=== PATIENT | male | born 1960 | race Caucasian/White ===

== ENCOUNTER 2020-07-18 09:48 | Day surgery (SDC) | payer OTHER ==
[~2020-07-18 09:48] MED LIST: CIPROFLOXACIN 0.3% OPHTH SOLUTION 5ML BOTTLE. OD ONE; CRESTOR40 MG PO; GENTAMICIN SULFATE/PF 4 MG, EPINEPHrine 0.5 MG in BALANCED SALT IRR SOLN (BAG) 500 ML IO ONE; IV RINGERS,LACTATED 1000ML 1,000 ML IV SCH; LIDOCAINE 2% JELLY 6ML IN APPLICATOR. OD ONE; PHENYLEPHRINE 2.5% OPHTH SOLUTION 2ML BOTTLE. OD SCH; PRAS10TA9 PO; PROPARACAINE 0.5% OPHTH SOLUTION 15ML BOTTLE. OD ONE; RIVA20TA2 PO; TADA5TAB PO
[2020-07-18] MEDS ORDERED: CHONDROIT-SOD-HYALURONATE KIT. ONE (10:20)
[2020-07-18] MEDS ORDERED: CHONDROITIN-SOD-HYALURONATE 0.5 ML DISP.SYRIN. ONE (10:20)
[2020-07-18] MEDS ORDERED: NEO/POLYMYX/DEXAMETH OPHTH OINTMENT 3.5GM TUBE. ONE (10:20)
[2020-07-18] MEDS ORDERED: BALANCED SALT IRRIG OPHTH SOLN 15 ML BOTTLE. ONE (10:20)
[2020-07-18] MEDS ORDERED: LIDOCAINE 1%/PHENYLEPH 1.5% PF OPHTH 1 ML VIAL. ONE (10:20)
[2020-07-18] MEDS ORDERED: LIDOCAINE 2% JELLY 6ML IN APPLICATOR. ONE (10:20)
[2020-07-18] MEDS: CYCLOPENTOLATE 2% OPHTH SOLUTION 2ML BOTTLE. OD SCH ×3 (10:50→11:00)
[2020-07-18] MEDS: PHENYLEPHRINE 10% OPHTH SOLUTION 5ML BOTTLE. OD SCH ×2 (10:50→11:00)
[2020-07-18] MEDS ORDERED: MIDAZOLAM HCL/PF 2 MG/2 ML VIAL. ONE (11:35)
[2020-07-18 13:26] VITALS: BP 122/73
--- NOTE | 2020-07-19 10:54 | OP ---
DATE OF SURGERY: 07/18/2020 PREOPERATIVE DIAGNOSIS: Cataract of the right eye. PROCEDURE: Phacoemulsification with posterior chamber intraocular lens implantation of the right eye. INDICATION: Painless progressive visual loss and visually significant cataract. SURGEON: Matilda Abraham MD ANESTHESIA: Topical with monitored anesthesia care. DESCRIPTION OF PROCEDURE: The right eye was prepped with Betadine in the usual sterile fashion and draped. A paracentesis was performed followed by instillation of preservative-free lidocaine and phenylephrine mixed with balanced salt solution. Viscoelastic was injected followed by a capsulorrhexis and hydrodissection. The nucleus was removed in a modified stop and chop fashion and the I/A handpiece was used to remove the remainder of the cortex. Viscoelastic was injected into the capsular bag. An [place] model SN60WF with a power of 20.0 diopters was placed into the capsular bag. Balanced salt solution was used to hydrate the corneal wounds and the viscoelastic evacuated with the I/A handpiece. Once no leak was noted, Maxitrol was placed on the eye and the eye shielded and the patient was sent to the recovery room uneventfully. MATILDA ABRAHAM MD DR: ISAIAS/amairani JOB#: [id number] / [id number]
== END 2020-07-18 13:42 | disposition home or self-care (01) ==
LOC: SURG 09:48
PROVIDERS: ATTEND Ophthalmology
DX: H25.89 Other age-related cataract (principal); I10 Essential (primary) hypertension; E78.00 Pure hypercholesterolemia, unspecified; J44.9 Chronic obstructive pulmonary disease, unspecified; I25.10 Atherosclerotic heart disease of native coronary artery without angina pectoris; Z20.828 Contact with and (suspected) exposure to other viral communicable diseases; Z87.891 Personal history of nicotine dependence; Z72.89 Other problems related to lifestyle; Z98.890 Other specified postprocedural states; Z88.0 Allergy status to penicillin
CPT/HCPCS: 66984; 87426; C1780; C9803; J0171; J1580; J2250; J3490; U0003

== ENCOUNTER 2020-07-25 09:55 | Day surgery (SDC) | payer OTHER ==
[~2020-07-25 09:55] MED LIST changes: -CIPROFLOXACIN 0.3% OPHTH SOLUTION 5ML BOTTLE. OD ONE; +CIPROFLOXACIN 0.3% OPHTH SOLUTION 5ML BOTTLE. OS ONE; +HYDROmorphone 2 MG/ML VIAL IVP PRN; +LIDOCAINE 1% PF 2 ML VIAL. ID PRN; -LIDOCAINE 2% JELLY 6ML IN APPLICATOR. OD ONE; +LIDOCAINE 2% JELLY 6ML IN APPLICATOR. OS ONE; +MORPHINE SULFATE 2 MG/ML VIAL. IVP PRN; +ONDANSETRON PF 4 MG/2 ML VIAL. IVP PRN; -PHENYLEPHRINE 2.5% OPHTH SOLUTION 2ML BOTTLE. OD SCH; +PROCHLORPERAZINE 10 MG/2 ML VIAL. IVP PRN; -PROPARACAINE 0.5% OPHTH SOLUTION 15ML BOTTLE. OD ONE; +PROPARACAINE 0.5% OPHTH SOLUTION 15ML BOTTLE. OS ONE; +fentaNYL PF VIAL 100 MCG/2 ML VIAL IVP PRN
[2020-07-25] MEDS: PHENYLEPHRINE 10% OPHTH SOLUTION 5ML BOTTLE. OS SCH ×3 (10:40→10:50)
[2020-07-25] MEDS: CYCLOPENTOLATE 2% OPHTH SOLUTION 2ML BOTTLE. OS SCH ×3 (10:51→10:59)
[2020-07-25] MEDS ORDERED: LIDOCAINE 1%/PHENYLEPH 1.5% PF OPHTH 1 ML VIAL. ONE (12:43)
[2020-07-25] MEDS ORDERED: CHONDROIT-SOD-HYALURONATE KIT. ONE (12:43)
[2020-07-25] MEDS ORDERED: NEO/POLYMYX/DEXAMETH OPHTH OINTMENT 3.5GM TUBE. ONE (12:43)
[2020-07-25] MEDS ORDERED: CHONDROITIN-SOD-HYALURONATE 0.5 ML DISP.SYRIN. ONE (12:43)
[2020-07-25] MEDS ORDERED: MIDAZOLAM HCL/PF 2 MG/2 ML VIAL. ONE (12:46)
[2020-07-25 13:40] VITALS: BP 121/75
--- NOTE | 2020-07-25 13:49 | OP ---
DATE OF SURGERY: 07/25/2020 PREOPERATIVE DIAGNOSIS: Cataract of the left eye. PROCEDURE: Phacoemulsification with posterior chamber intraocular lens implantation of the left eye. INDICATION: Painless progressive visual loss and visually significant cataract and difficulty reading and driving. SURGEON: Matilda Abraham MD. ANESTHESIA: Topical with monitored anesthesia care. DESCRIPTION OF PROCEDURE: The left eye was prepped with Betadine in the usual sterile fashion and draped. A paracentesis was performed followed by instillation of 1% preservative-free lidocaine. This was admixed with phenylephrine and balanced salt solution. A temporal clear corneal incision was made followed by instillation of viscoelastic. A capsulorrhexis was performed followed by hydroexpression of the nucleus and Viscoat placed both anterior and posterior to the nucleus. It was removed with the phacoemulsification handpiece and the I/A handpiece used to remove the cortex. Viscoelastic was placed into the capsular bag and an Bran, model SN60WF with a power of 20.5 diopters was placed into the capsular bag. Balanced salt solution was used to hydrate the corneal wounds and the viscoelastic evacuated with the I/A handpiece. Once no leak was noted, Maxitrol was placed on the eye and the eye shielded and the patient was sent to the recovery room uneventfully. MATILDA ABRAHAM MD DR: ISAIAS/nts JOB#: [id number] / [id number]
== END 2020-07-25 13:58 | disposition home or self-care (01) ==
LOC: SURG 09:55 → EDUNIT# 12:00 → SURG 13:58
PROVIDERS: ATTEND Ophthalmology
DX: H25.89 Other age-related cataract (principal); I25.10 Atherosclerotic heart disease of native coronary artery without angina pectoris; I10 Essential (primary) hypertension; E78.00 Pure hypercholesterolemia, unspecified; J44.9 Chronic obstructive pulmonary disease, unspecified; E66.9 Obesity, unspecified; Z20.828 Contact with and (suspected) exposure to other viral communicable diseases; Z87.891 Personal history of nicotine dependence; Z79.899 Other long term (current) drug therapy; Z98.890 Other specified postprocedural states; Z72.89 Other problems related to lifestyle; Z88.0 Allergy status to penicillin
CPT/HCPCS: 66984; 87426; C1780; C9803; J0171; J1580; J2250; J3490; U0003